=== PATIENT | male | born 1960 | race Caucasian/White ===

== ENCOUNTER 2019-07-04 15:53 | Outpatient (CLI) | payer BC ==
--- NOTE | 2019-07-04 16:10 | RAD ---
EXAM: Two views chest PROVIDED CLINICAL HISTORY: Tobacco use, cough. COMPARISON: None 2011 FINDINGS: Cardiac silhouette and pulmonary vasculature are within normal limits. There is a linear area of inc reased density seen posteriorly overlying the upper lobes but only visualized on the lateral projection. This may represent atelectasis, but developing pneumonitis cannot be entirely excluded. P robably overlies the right hilar region. Degenerative changes are seen in the spine. IMPRESSION: Linear density overlying the posterior aspect of the upper lobes adjacent to the major fissure on thi s single lateral projection but is probably within the right upper lobe. This may be attributable to atelectasis, but developing area of pneumonitis cannot be entirely excluded. Follow-up chest x-ray is recommended to ensure resolution..
== END 2019-07-04 15:54 | disposition home or self-care (01) ==
LOC: BICRAD 15:53
PROVIDERS: ATTEND Specialist
DX: R05 Cough (principal); J98.4 Other disorders of lung; Z72.0 Tobacco use
CPT/HCPCS: 71046

== ENCOUNTER 2021-04-18 11:22 | Outpatient (CLI) | payer BC ==
[2021-04-18 14:07] LABS: #Basophils 0.1 10x3/uL (0.0-0.2); #Eosinphils 0.2 10x3/uL (0.0-0.5); #Monocytes 0.7 10x3/uL (0.0-1.1); #Neutrophils 4.6 10x3/uL (1.5-8.4); %Basophils 0.7 % (0.0-2.0); %Eosinophils 2.8 % (0.0-6.0); %Lymphocytes 32.1 % (18.0-47.0); %Monocytes 8.1 % (0.0-10.0); %Neutrophils 56.2 % (40.0-75.0); Hemoglobin 14.9 g/dL (13.5-17.5); Mean Corpuscular HGB CONC 34.1 g/dL (32.0-36.0); Mean Corpuscular Hemoglobin 31.6 pg (27.0-33.0); Mean Corpuscular Volume 92.8 fl (81.2-95.1); Mean Platelet Volume 9.6 fl (7.4-10.4); Platelet Count 214 10x3/uL (150-450); RBC Distribution Width 13.2 % (11.5-14.5); Red Blood Cell (RBC) Count 4.71 10x6/uL (4.32-5.72); White Blood Cell (WBC) Count 8.2 10x3/uL (3.5-10.5)
[2021-04-18 14:26] LABS: ALT (SGPT) 19 U/L (8-55); AST (SGOT) 14 U/L (5-34); Albumin 4.3 g/dL (3.5-5.0); Alkaline Phosphatase 99 U/L (40-110); Anion Gap 12 mmol/L (10-20); BUN (Urea Nitrogen) 13 mg/dL (8.4-25.7); Bilirubin, Total 0.6 mg/dL (0.2-1.2); Calc. Creatinine Clearance 0 mL/min (70-130); Calcium 9.6 mg/dL (7.8-10.44); Carbon Dioxide 26 mmol/L (22-29); Chloride 106 mmol/L (98-107); Globulin 2.5 g/dL (2.4-3.5); Glucose 84 mg/dL (70-105); Protein, Total 6.8 g/dL (6.0-8.3); Sodium 140 mmol/L (136-145)
[2021-04-18 16:15] LABS: Hemoglobin A1c 5.3 % (4.0-6.0)
== END 2021-04-18 11:23 | disposition home or self-care (01) ==
LOC: LABBT 11:22
PROVIDERS: ATTEND Surgery
DX: Z01.818 Encounter for other preprocedural examination (principal); C18.9 Malignant neoplasm of colon, unspecified
CPT/HCPCS: 80053; 83036; 85025; 93005; 93010

== ENCOUNTER 2021-04-18 14:15 | Inpatient (IN) | payer BC ==
[2021-04-23] MEDS ORDERED: cefOXitin Sodium/Dextrose 2 GM/50 ML BAG ONE (08:07)
[2021-04-23] MEDS ORDERED: Fentanyl 100 MCG/2 ML VIAL ONE ×3 (09:07→12:02)
[2021-04-23] MEDS ORDERED: Rocuronium Bromide 50 MG/5 ML VIAL ONE (09:08)
[2021-04-23] MEDS ORDERED: Famotidine/PF 20 mg/2ml Vial ONE (09:08)
[2021-04-23] MEDS ORDERED: SUGAMMADEX SODIUM 500 MG/5 ML VIAL ONE (09:22)
[2021-04-23] MEDS ORDERED: Metoclopramide HCl 10 MG/2 ML VIAL ONE (09:24)
[2021-04-23] MEDS ORDERED: Ondansetron PF 4 MG/2 ML Vial ONE (09:24)
[2021-04-23] MEDS ORDERED: Succinylcholine 200 MG/10 ml SYRINGE FS ONE (09:24)
[2021-04-23] MEDS ORDERED: Ketorolac Tromethamine 30 MG/ML VIAL ONE (09:24)
[2021-04-23] MEDS ORDERED: Lidocaine 1% PF 5 ML VIAL ONE (09:24)
[2021-04-23] MEDS ORDERED: PROPOFOL 200 MG/20 ML VIAL ONE (09:24)
[2021-04-23] MEDS ORDERED: ePHEDrine Sulfate 50 MG/10 ML VIAL ONE (09:24)
[2021-04-23] MEDS ORDERED: Rocuronium Bromide 10 MG/ML (10ML VIAL) ONE (09:24)
[2021-04-23] MEDS ORDERED: PHENYLEPHRINE-NS 100 MCG/ML 10 ML SYRINGE ONE (09:24)
[2021-04-23] MEDS ORDERED: Dexamethasone 20 MG/5 ML VIAL ONE (09:24)
[2021-04-23] MEDS ORDERED: Bupivacaine 0.25% HCL 30 ML VIAL ONE (09:43)
[2021-04-23] MEDS ORDERED: Promethazine HCl 25 MG/ML VIAL IVPB PRN (11:35)
[2021-04-23] MEDS ORDERED: Promethazine HCl 25 MG/ML VIAL IM PRN ×3 (11:35→12:00)
[2021-04-23] MEDS ORDERED: Ondansetron HCl/PF 4 MG/2 ML Vial IVP PRN (11:35)
[2021-04-23] MEDS ORDERED: HYDROmorphone 2 MG/ML VIAL SLOW IVP PRN (11:35)
[2021-04-23] MEDS ORDERED: hydrALAZINE 20 MG/ML VIAL SLOW IVP PRN (11:41)
[2021-04-23] MEDS ORDERED: Ondansetron PF 4 MG/2 ML Vial IVP PRN (11:41)
[2021-04-23] MEDS ORDERED: metroNIDAZOLE 500 MG in Premix Bag 1 BAG IVPB SCH (12:00)
[2021-04-23] MEDS ORDERED: Morphine Sulfate 100 MG in Dextrose 5% in Water 98 ML IV SCH (12:00)
[2021-04-23] MEDS ORDERED: diphenhydrAMINE 25 MG CAP PO PRN (12:00)
[2021-04-23] MEDS ORDERED: diphenhydrAMINE 50 MG/ML VIAL IM/IV PRN (12:00)
[2021-04-23] MEDS ORDERED: Ketorolac Tromethamine 30 MG/ML VIAL IVP SCH (12:00)
[2021-04-23] MEDS ORDERED: Zolpidem Tartrate 5 MG TAB PO PRN (12:00)
[2021-04-23] MEDS ORDERED: Naloxone HCl 0.4 mg/ml Vial IV PRN (12:00)
[2021-04-23] MEDS: metroNIDAZOLE 500 MG in Premix Bag 1 BAG IVPB SCH ×2 (15:19→20:14)
[2021-04-23 16:49] VITALS: BMI 38.5
[2021-04-23] MEDS: Ketorolac Tromethamine 30 MG/ML VIAL IVP SCH ×2 (17:27→23:34)
[2021-04-23] MEDS: Sodium Chloride 0.9% 1,000 ML IV SCH ×2 (17:28→23:37)
[2021-04-23] MEDS: CEFAZOLIN 2 GM in Premix Bag 1 BAG IVPB SCH (17:28)
[2021-04-23] MEDS: Famotidine 20 MG TAB PO SCH (20:12)
[2021-04-23] MEDS: Famotidine/PF 20 mg/2ml Vial SLOW IVP SCH (20:14)
[2021-04-24] MEDS: CEFAZOLIN 2 GM in Premix Bag 1 BAG IVPB SCH (02:05)
[2021-04-24] MEDS: metroNIDAZOLE 500 MG in Premix Bag 1 BAG IVPB SCH (02:05)
[2021-04-24] MEDS: Ketorolac Tromethamine 30 MG/ML VIAL IVP SCH ×4 (05:35→23:27)
[2021-04-24 05:48] LABS: #Lymphocytes 1.2 thou/uL (1.20-3.40); #Monocytes 1.1 thou/uL (0.11-0.59); #Neutrophils 10.1 thou/uL (1.40-6.50); %Basophils 0.2 % (0.0-1.0); %Eosinophils 0.2 % (0.0-10.0); %Lymphocytes 9.8 % (21.0-51.0); %Monocytes 8.5 % (0.0-10.0); %Neutrophils 81.3 % (42.0-75.0); Hemoglobin 14.1 g/dL (14.0-18.0); Mean Corpuscular HGB CONC 35.7 g/dL (32.0-36.0); Mean Corpuscular Volume 95.4 fL (78.0-98.0); Mean Platelet Volume 6.8 fL (7.4-10.4); Platelet Count 203 thou/uL (130-400); RBC Distribution Width 12.7 % (11.5-14.5); Red Blood Cell (RBC) Count 4.16 mill/uL (4.70-6.10); White Blood Cell (WBC) Count 12.4 thou/uL (4.8-10.8)
[2021-04-24 06:09] LABS: Anion Gap 13 mmol/L (10-20); BUN (Urea Nitrogen) 13 mg/dL (8.4-25.7); Calc. Creatinine Clearance 122 mL/min (70-130); Calcium 8.4 mg/dL (7.8-10.44); Carbon Dioxide 21 mmol/L (22-29); Chloride 107 mmol/L (98-107); Glucose 142 mg/dL (70-105); Potassium 3.9 mmol/L (3.5-5.1); Sodium 137 mmol/L (136-145)
[2021-04-24] MEDS: Famotidine/PF 20 mg/2ml Vial SLOW IVP SCH ×2 (09:51→20:29)
[2021-04-24] MEDS: Enoxaparin Sodium 40 MG/0.4 ML SYRINGE SC SCH (11:33)
[2021-04-24] MEDS: Famotidine 20 MG TAB PO SCH ×2 (11:43→20:28)
[2021-04-24] MEDS: Sodium Chloride 0.9% 1,000 ML IV SCH ×3 (15:10→20:29)
[2021-04-25] MEDS: Ketorolac Tromethamine 30 MG/ML VIAL IVP SCH ×4 (05:51→23:51)
[2021-04-25] MEDS: Sodium Chloride 0.9% 1,000 ML IV SCH (08:49)
[2021-04-25] MEDS: Famotidine/PF 20 mg/2ml Vial SLOW IVP SCH ×2 (08:50→20:50)
[2021-04-25] MEDS: Enoxaparin Sodium 40 MG/0.4 ML SYRINGE SC SCH (08:50)
[2021-04-25] MEDS: Famotidine 20 MG TAB PO SCH ×2 (11:23→23:17)
[2021-04-25] MEDS: Simethicone Chewable 80 MG TAB PO PRN ×2 (16:05→20:50)
[2021-04-26] MEDS: Sodium Chloride 0.9% 1,000 ML IV SCH ×3 (01:07→12:25)
[2021-04-26] MEDS: Ketorolac Tromethamine 30 MG/ML VIAL IVP SCH ×3 (06:07→17:27)
[2021-04-26] MEDS: Famotidine 20 MG TAB PO SCH (09:05)
[2021-04-26] MEDS: Enoxaparin Sodium 40 MG/0.4 ML SYRINGE SC SCH (09:20)
[2021-04-26] MEDS: Ondansetron PF 4 MG/2 ML Vial IVP PRN ×3 (09:20→23:59)
[2021-04-26] MEDS: Famotidine/PF 20 mg/2ml Vial SLOW IVP SCH ×2 (09:20→20:53)
[2021-04-26] MEDS ORDERED: Sodium Chloride 0.9% 500 ML IV SCH (09:30)
[2021-04-26] MEDS ORDERED: Acetaminophen 500 MG TAB PO PRN (10:31)
[2021-04-27] MEDS: Famotidine 20 MG TAB PO SCH ×3 (00:45→20:34)
[2021-04-27] MEDS: Ketorolac Tromethamine 30 MG/ML VIAL IVP SCH ×4 (00:45→16:36)
[2021-04-27] MEDS: Sodium Chloride 0.9% 1,000 ML IV SCH ×3 (00:46→11:18)
[2021-04-27 05:22] LABS: #Eosinphils 0.1 thou/uL (0.0-0.7); #Lymphocytes 0.6 thou/uL (1.20-3.40); #Monocytes 0.5 thou/uL (0.11-0.59); #Neutrophils 4.2 thou/uL (1.40-6.50); %Basophils 0.2 % (0.0-1.0); %Eosinophils 2.4 % (0.0-10.0); %Lymphocytes 11.4 % (21.0-51.0); %Monocytes 8.8 % (0.0-10.0); %Neutrophils 77.3 % (42.0-75.0); Mean Corpuscular HGB CONC 36.2 g/dL (32.0-36.0); Mean Corpuscular Hemoglobin 34.5 pg (27.0-31.0); Mean Corpuscular Volume 95.2 fL (78.0-98.0); Mean Platelet Volume 6.4 fL (7.4-10.4); Platelet Count 216 thou/uL (130-400); RBC Distribution Width 12.6 % (11.5-14.5); Red Blood Cell (RBC) Count 3.48 mill/uL (4.70-6.10); White Blood Cell (WBC) Count 5.4 thou/uL (4.8-10.8)
[2021-04-27 05:37] LABS: Anion Gap 14 mmol/L (10-20); BUN (Urea Nitrogen) 13 mg/dL (8.4-25.7); Calc. Creatinine Clearance 162 mL/min (70-130); Calcium 8.2 mg/dL (7.8-10.44); Carbon Dioxide 18 mmol/L (22-29); Chloride 109 mmol/L (98-107); Glucose 117 mg/dL (70-105); Potassium 3.5 mmol/L (3.5-5.1); Sodium 137 mmol/L (136-145)
[2021-04-27] MEDS ORDERED: HYDROcodone/Acetaminophen 7.5/325 mg Tablet PO PRN ×2 (09:18)
[2021-04-27] MEDS ORDERED: Morphine 4 MG/ML VIAL SLOW IVP PRN (09:18)
[2021-04-27] MEDS: Famotidine/PF 20 mg/2ml Vial SLOW IVP SCH ×2 (09:20→22:43)
[2021-04-27] MEDS: Enoxaparin Sodium 40 MG/0.4 ML SYRINGE SC SCH (09:20)
[2021-04-27] MEDS: Simethicone Chewable 80 MG TAB PO PRN ×2 (09:26→16:36)
[2021-04-28] MEDS: Sodium Chloride 0.9% 1,000 ML IV SCH (01:54)
[2021-04-28 05:50] VITALS: TEMP 98.2
[2021-04-28] MEDS: Enoxaparin Sodium 40 MG/0.4 ML SYRINGE SC SCH (10:10)
[2021-04-28] MEDS: Famotidine 20 MG TAB PO SCH (10:11)
[2021-04-28] MEDS: Famotidine/PF 20 mg/2ml Vial SLOW IVP SCH (10:18)
[2021-04-28 11:43] VITALS: BP 133/68
== END 2021-04-28 12:15 | disposition home or self-care (01) | DRG 330 ==
LOC: SURG A 04-23 07:40 → EDSTATUS 04-23 14:15
PROVIDERS: ADMIT Surgery; ATTEND Surgery
PROC: 0DTF0ZZ Resection of Right Large Intestine, Open Approach (ICD-10-PCS; principal; 2021-04-23)
DX: C18.0 Malignant neoplasm of cecum (principal); C78.6 Secondary malignant neoplasm of retroperitoneum and peritoneum; C77.2 Secondary and unspecified malignant neoplasm of intra-abdominal lymph nodes; C78.4 Secondary malignant neoplasm of small intestine; K21.9 Gastro-esophageal reflux disease without esophagitis; E78.00 Pure hypercholesterolemia, unspecified; Z98.890 Other specified postprocedural states; Z80.1 Family history of malignant neoplasm of trachea, bronchus and lung; Z80.41 Family history of malignant neoplasm of ovary
CPT/HCPCS: 36415; 36416; 80048; 85025; 88309; J0690; J0694; J1100; J1650; J1885; J2274; J2405; J2704; J2765; J3010; J7070; S0020; S0028

== ENCOUNTER 2021-04-30 14:55 | Observation (INO) | payer BC ==
[~2021-04-30 14:55] MED LIST: Iopamidol-370 76% 500 ML 1 ML ONE
[2021-04-30 15:22] LABS: #Eosinphils 0.1 thou/uL (0.0-0.7); #Lymphocytes 0.8 thou/uL (1.20-3.40); #Monocytes 0.7 thou/uL (0.11-0.59); #Neutrophils 10.7 thou/uL (1.40-6.50); %Basophils 0.1 % (0.0-1.0); %Eosinophils 0.6 % (0.0-10.0); %Lymphocytes 6.2 % (21.0-51.0); %Monocytes 5.9 % (0.0-10.0); %Neutrophils 87.3 % (42.0-75.0); Hemoglobin 13.3 g/dL (14.0-18.0); Mean Corpuscular HGB CONC 33.4 g/dL (32.0-36.0); Mean Corpuscular Hemoglobin 31.8 pg (27.0-31.0); Mean Corpuscular Volume 95.1 fL (78.0-98.0); Mean Platelet Volume 6.3 fL (7.4-10.4); Platelet Count 296 thou/uL (130-400); RBC Distribution Width 12.6 % (11.5-14.5); Red Blood Cell (RBC) Count 4.19 mill/uL (4.70-6.10); White Blood Cell (WBC) Count 12.2 thou/uL (4.8-10.8)
[2021-04-30 15:46] LABS: ALT (SGPT) 53 U/L (8-55); AST (SGOT) 40 U/L (5-34); Albumin 3.3 g/dL (3.5-5.0); Alkaline Phosphatase 88 U/L (40-110); Anion Gap 15 mmol/L (10-20); BUN (Urea Nitrogen) 8 mg/dL (8.4-25.7); Bilirubin, Total 1.7 mg/dL (0.2-1.2); Calc. Creatinine Clearance 0 mL/min (70-130); Calcium 8.5 mg/dL (7.8-10.44); Carbon Dioxide 22 mmol/L (22-29); Chloride 99 mmol/L (98-107); Globulin 2.8 g/dL (2.4-3.5); Glucose 137 mg/dL (70-105); Lipase 12 U/L (8-78); Protein, Total 6.1 g/dL (6.0-8.3); Sodium 133 mmol/L (136-145)
[2021-04-30] MEDS ORDERED: Morphine 4 MG/ML VIAL ONE (16:39)
[2021-04-30] MEDS ORDERED: Ondansetron PF 4 MG/2 ML Vial ONE (16:39)
[2021-04-30] MEDS ORDERED: Famotidine/PF 20 mg/2ml Vial ONE (16:53)
[2021-04-30] MEDS ORDERED: methylPREDNISolone Sod Succ 40 MG VIAL ONE ×2 (16:53→16:55)
[2021-04-30] MEDS ORDERED: diphenhydrAMINE 50 MG/ML VIAL ONE (16:53)
[2021-04-30] MEDS ORDERED: Piperacillin/Tazobactam 4.5 GM in Sodium Chloride 0.9% 100 ML IVPB SCH (18:45)
[2021-04-30] MEDS ORDERED: Ondansetron PF 4 MG/2 ML Vial IVP PRN (21:00)
[2021-04-30] MEDS ORDERED: Acetaminophen 325 MG TAB PO PRN (21:00)
[2021-04-30] MEDS ORDERED: Ondansetron ODT 4 MG TAB SL PRN (21:00)
[2021-04-30] MEDS: Sodium Chloride 0.9% 1,000 ML IV SCH (21:52)
[2021-04-30 22:01] VITALS: BMI 37.6
[2021-05-01] MEDS: Sodium Chloride 0.9% 1,000 ML IV SCH (04:53)
[2021-05-01 09:36] LABS: #Eosinphils 0.1 thou/uL (0.0-0.7); #Lymphocytes 1.4 thou/uL (1.20-3.40); #Monocytes 0.8 thou/uL (0.11-0.59); #Neutrophils 11.8 thou/uL (1.40-6.50); %Basophils 0.1 % (0.0-1.0); %Eosinophils 0.5 % (0.0-10.0); %Lymphocytes 9.8 % (21.0-51.0); %Monocytes 5.8 % (0.0-10.0); %Neutrophils 83.8 % (42.0-75.0); Hemoglobin 12.7 g/dL (14.0-18.0); Mean Corpuscular HGB CONC 32.8 g/dL (32.0-36.0); Mean Corpuscular Hemoglobin 31.2 pg (27.0-31.0); Mean Corpuscular Volume 95.1 fL (78.0-98.0); Mean Platelet Volume 6.5 fL (7.4-10.4); Platelet Count 320 thou/uL (130-400); RBC Distribution Width 12.7 % (11.5-14.5); Red Blood Cell (RBC) Count 4.09 mill/uL (4.70-6.10); White Blood Cell (WBC) Count 14.1 thou/uL (4.8-10.8)
[2021-05-01 09:46] LABS: Anion Gap 15 mmol/L (10-20); BUN (Urea Nitrogen) 10 mg/dL (8.4-25.7); Calc. Creatinine Clearance 174 mL/min (70-130); Calcium 8.8 mg/dL (7.8-10.44); Carbon Dioxide 26 mmol/L (22-29); Chloride 101 mmol/L (98-107); Glucose 113 mg/dL (70-105); Potassium 3.5 mmol/L (3.5-5.1); Sodium 138 mmol/L (136-145)
[2021-05-01] MEDS: D5 1/2 NS w/20 mEq KCL 1,000 ML IV SCH ×2 (10:46→22:21)
[2021-05-01] MEDS ORDERED: Morphine 2 MG/ML VIAL SLOW IVP PRN (22:59)
[2021-05-01] MEDS ORDERED: Morphine 4 MG/ML VIAL SLOW IVP PRN (22:59)
[2021-05-02] MEDS: D5 1/2 NS w/20 mEq KCL 1,000 ML IV SCH ×2 (06:28→14:44)
[2021-05-02 12:20] VITALS: BP 126/75; TEMP 97.8
== END 2021-05-02 14:49 | disposition home or self-care (01) ==
LOC: ERS 14:55 → SJJU 18:43
PROVIDERS: ADMIT Surgery; ATTEND Surgery
DX: K56.600 Partial intestinal obstruction, unspecified as to cause (principal); N28.1 Cyst of kidney, acquired; J90 Pleural effusion, not elsewhere classified; E78.5 Hyperlipidemia, unspecified; K21.9 Gastro-esophageal reflux disease without esophagitis; E66.9 Obesity, unspecified; Z68.37 Body mass index [BMI] 37.0-37.9, adult; Z79.899 Other long term (current) drug therapy; Z85.068 Personal history of other malignant neoplasm of small intestine
CPT/HCPCS: 36415; 74018; 74177; 80048; 80053; 82274; 83690; 85025; 93005; 96374; 96375; 96376; G0378; J1200; J2270; J2405; J2543; J2920; J3480; J3490; Q9967; S0028

== ENCOUNTER 2021-05-16 11:37 | Outpatient (CLI) | payer BC ==
[2021-05-16 15:07] LABS: #Basophils 0.1 10x3/uL (0.0-0.2); #Eosinphils 0.3 10x3/uL (0.0-0.5); #Monocytes 0.5 10x3/uL (0.0-1.1); #Neutrophils 3.8 10x3/uL (1.5-8.4); %Basophils 0.7 % (0.0-2.0); %Eosinophils 3.8 % (0.0-6.0); %Lymphocytes 33.6 % (18.0-47.0); %Monocytes 7.5 % (0.0-10.0); Hemoglobin 13.6 g/dL (13.5-17.5); Mean Corpuscular HGB CONC 32.7 g/dL (32.0-36.0); Mean Corpuscular Volume 94.8 fl (81.2-95.1); Mean Platelet Volume 9.6 fl (7.4-10.4); Platelet Count 316 10x3/uL (150-450); RBC Distribution Width 13.8 % (11.5-14.5); Red Blood Cell (RBC) Count 4.39 10x6/uL (4.32-5.72)
== END 2021-05-16 11:38 | disposition home or self-care (01) ==
LOC: LABBT 11:37
PROVIDERS: ATTEND Surgery
DX: Z01.812 Encounter for preprocedural laboratory examination (principal); C18.9 Malignant neoplasm of colon, unspecified
CPT/HCPCS: 85025

== ENCOUNTER 2021-08-11 09:30 | Outpatient (CLI) | payer BC ==
[2021-08-11] MEDS ORDERED: Iopamidol 370 76% 100 ML VIAL ONE (09:35)
[2021-08-11] MEDS ORDERED: Sodium Chloride 0.9% 10 ML ONE (10:09)
[2021-08-11] MEDS ORDERED: methylPREDNISolone Sod Succ/PF 125 MG/2 ML VIAL ONE (10:09)
[2021-08-11] MEDS ORDERED: Hydrocortisone Sod Succ/PF 100 mg/2 ml Vial IVP SCH (10:15)
[2021-08-11] MEDS ORDERED: diphenhydrAMINE 50 MG/ML VIAL IVP SCH (10:15)
[2021-08-11] MEDS ORDERED: Famotidine/PF 20 mg/2ml Vial SLOW IVP SCH (10:15)
== END 2021-08-11 09:31 | disposition home or self-care (01) ==
LOC: CT 09:30
PROVIDERS: ATTEND Internal Medicine Hematology & Oncology
DX: C18.0 Malignant neoplasm of cecum (principal); J98.4 Other disorders of lung; R91.8 Other nonspecific abnormal finding of lung field; R16.1 Splenomegaly, not elsewhere classified; Z98.890 Other specified postprocedural states
CPT/HCPCS: 71250; 71260; 74177; J1200; J1642; J1720; J2930; Q9967; S0028

== ENCOUNTER 2021-11-10 09:48 | Outpatient (CLI) | payer BC | END 2021-11-10 09:49 | disposition home or self-care (01) | LOC: CT 09:48 | PROVIDERS: ATTEND Internal Medicine Hematology & Oncology | DX: C18.0 Malignant neoplasm of cecum (principal); K44.9 Diaphragmatic hernia without obstruction or gangrene; R16.1 Splenomegaly, not elsewhere classified; K59.00 Constipation, unspecified | CPT/HCPCS: 71260; 74177 ==

== ENCOUNTER 2022-04-21 08:53 | Outpatient (CLI) | payer BC ==
[2022-04-21] MEDS ORDERED: Iopamidol 370 76% 100 ML VIAL ONE (13:10)
== END 2022-04-21 08:54 | disposition home or self-care (01) ==
LOC: CT 08:53
PROVIDERS: ATTEND Internal Medicine Hematology & Oncology
DX: C18.0 Malignant neoplasm of cecum (principal); D70.1 Agranulocytosis secondary to cancer chemotherapy; T45.1X5A Adverse effect of antineoplastic and immunosuppressive drugs, initial encounter; K80.20 Calculus of gallbladder without cholecystitis without obstruction; R16.1 Splenomegaly, not elsewhere classified; R93.5 Abnormal findings on diagnostic imaging of other abdominal regions, including retroperitoneum; R93.7 Abnormal findings on diagnostic imaging of other parts of musculoskeletal system; Z90.49 Acquired absence of other specified parts of digestive tract
CPT/HCPCS: 71260; 74177; Q9967

== ENCOUNTER 2022-12-07 08:38 | Outpatient (CLI) | payer BC ==
[2022-12-07] MEDS ORDERED: Iopamidol 370 76% 100 ML VIAL ONE (10:24)
== END 2022-12-07 08:39 | disposition home or self-care (01) ==
LOC: CT 08:38
PROVIDERS: ATTEND Internal Medicine Hematology & Oncology
DX: C18.9 Malignant neoplasm of colon, unspecified (principal)
CPT/HCPCS: 71260; 74177; Q9967

== ENCOUNTER 2023-08-16 09:17 | Outpatient (CLI) | payer BC ==
[2023-08-16] MEDS ORDERED: Iopamidol 370 76% 100 ML VIAL ONE (09:29)
== END 2023-08-16 09:18 | disposition home or self-care (01) ==
LOC: CT 09:17
PROVIDERS: ATTEND Internal Medicine Hematology & Oncology
DX: C18.9 Malignant neoplasm of colon, unspecified (principal); R16.1 Splenomegaly, not elsewhere classified; K80.20 Calculus of gallbladder without cholecystitis without obstruction; K63.89 Other specified diseases of intestine
CPT/HCPCS: 71260; 74177